=== PATIENT | male | born 1955 | race African-American/Black ===

== ENCOUNTER 2017-07-15 14:17 | Emergency (ER) | payer OTHER, MEDICARE ==
[~2017-07-15] VITALS: Ht 180.3 cm; Wt 113.4 kg
[2017-07-15 14:38] LABS: ABSOLUTE BASOPHIL COUNT 0 /CUMM (0.0-0.2); ABSOLUTE EOSINOPHIL COUNT 0.2 /CUMM (0.0-0.7); ABSOLUTE GRANULOCYTE CT 7.1 /CUMM (1.4-6.5); ABSOLUTE LYMPH COUNT 1.5 /CUMM (1.2-3.4); ABSOLUTE MONOCYTE COUNT 0.1 /CUMM (0.10-0.60); BASOPHIL % 0.3 % (0.0-2.0); EOSINOPHIL % 1.7 % (0-5); GRANULOCYTE % 79.8 % (42.2-75.2); HEMATOCRIT 33.3 % (42-52); MEAN CORPUSCULAR HGB 29.5 PG (27.0-31.0); MEAN CORPUSCULAR HGB CONC 32.3 G/DL (33.0-37.0); MEAN CORPUSCULAR VOLUME 91.2 FL (80.0-94.0); MEAN PLATELET VOLUME 7.7 FL (7.4-10.4); PLATELET COUNT 391 /CUMM (130-400); RBC DISTRIBUTION WIDTH 15.7 % (11.5-14.5); RED BLOOD CELL CT 3.65 /CUMM (4.70-6.10); WHITE BLOOD CELL COUNT 8.9 /CUMM (4.8-10.8)
--- NOTE | 2017-07-15 16:23 | CT SCAN REPORT ---
EXAMINATION: CT ABDOMEN AND PELVIS WITHOUT CONTRAST CLINICAL INFORMATION: Abdominal pain. COMPARISON: May 2014. TECHNIQUE: Contiguous axial thin section helical images of the abdomen and pelvis were performed without oral or IV contrast. The data set was reformatted in the coronal and sagittal planes and reviewed on an independent workstation. DLP: 1006 mGy-cm. FINDINGS: There is patchy groundglass opacification within the lateral basal segment of the left lower lobe. The visualized lung bases are otherwise clear. The visualized portions of the heart are unremarkable. The liver is of normal size and attenuation without focal lesions nor intrahepatic biliary ductal dilation. A normal gallbladder is identified. There is no wall thickening or discernible pericholecystic fluid. The spleen, pancreas, adrenal glands are unremarkable. There are atrophic bilateral [place] kidneys. There is a transplanted kidney within the left lower quadrants of normal size and attenuation without hydronephrosis or nephrolithiasis. There is mild perinephric stranding. There is no abdominal free fluid. There is neither mesenteric nor retroperitoneal lymphadenopathy. Normal unopacified loops of small and large bowel are identified. A normal appendix is identified. There is no pelvic free fluid. The urinary bladder is unremarkable. There is neither pelvic nor inguinal lymphadenopathy. There is a fat-containing right inguinal hernia. Bone windows: Neither sclerotic nor lytic bone lesions are identified. IMPRESSION: No evidence for acute abdominal or pelvic inflammatory or infectious processes. Transplanted kidney within the left lower quadrant without hydronephrosis or nephrolithiasis. Atrophic bilateral [place] kidneys.
[2017-07-15] MEDS ORDERED: LABETALOL HCL300 M1 PO (17:42)
[2017-07-15] MEDS ORDERED: PROGRAF1 M1 PO (17:43)
[2017-07-15] MEDS ORDERED: PRAVACHOL40 M1 PO (17:43)
[2017-07-15] MEDS ORDERED: OMEPRAZOLE40 M1 PO (17:43)
[2017-07-15] MEDS ORDERED: LABETALOL HCL100 M1 PO (17:43)
[2017-07-15] MEDS ORDERED: LASIX20 M1 PO (17:44)
[2017-07-15] MEDS ORDERED: PREDNISONE5 M1 PO (17:44)
[2017-07-15] MEDS ORDERED: JANUVIA50 M1 PO (17:44)
[2017-07-15] MEDS ORDERED: LANTUS SOL100 UNIT/1 SC (17:45)
[2017-07-15] MEDS ORDERED: HUMALOG100 UNIT/2 SC (17:45)
[2017-07-15] MEDS ORDERED: ASPIRIN EC81 M1 PO (17:45)
--- NOTE | 2017-07-15 17:45 | ED GENERAL ADULT ---
History of Present Illness General Chief Complaint: Abdominal Pain/Flank Pain Stated Complaint: BIBA, ABD PAIN, BURNING WITH URINATION Source: patient Exam Limitations: no limitations Vital Signs & Intake/Output Vital Signs & Intake/Output Vital Signs Date Time Temp Pulse Resp B/P B/P Pulse O2 O2 Flow FiO2 Mean Ox Delivery Rate 07/15 1926 97.7 76 18 165/102 07/15 1856 97.7 76 18 165/102 98 Room Air 07/15 1422 98.2 83 18 157/99 98 Room Air Allergies Coded Allergies: NO KNOWN ALLERGIES (06/12/14) Reconcile Medications Aspirin (Ecotrin*) 81 MG TABLET.DR 1 TAB PO DAILY HEART/BLOOD (Reported) Cyclosporine (Restasis) 0.05 % DROPERETTE 1 GTT OPH BID BOTH EYES (Reported) Difluprednate (Durezol) 0.05 % DROPS 1 GTT OS BID LEFT EYE (Reported) Furosemide (Lasix) 20 MG TABLET 60 MG PO DAILY DIURETIC (Reported) Insulin Glargine,Hum.rec.anlog (Lantus Solostar) 100 UNIT/ML (3 ML) INSULN.PEN 15 UNIT SC QPM DM (Reported) Insulin Lispro (Humalog) 100 UNIT/ML VIAL DM (Reported) Labetalol HCl 300 MG TABLET 1 TAB PO BID BP (Reported) Labetalol HCl 100 MG TABLET 1 TAB PO PRN VERY HIGH BP (Reported) Nitrofurantoin Monohyd/M-Cryst (Macrobid 100 MG Capsule) 100 MG CAPSULE 1 CAP PO BID UTI with food Omeprazole 40 MG CAPSULE.DR 1 CAP PO BID GI (Reported) Oxybutynin Chloride (Oxybutynin Chloride ER) (Unknown Strength) TAB.ER.24 ( Unknown Dose) PO DAILY BLADDER (Reported) Pravastatin Sodium (Pravachol) 40 MG TABLET 1 TAB PO DAILY CHOLESTEROL ( Reported) Prednisone 5 MG TABLET 1 TAB PO DAILY TRANSPLANT (Reported) Sitagliptin Phosphate (Januvia) 50 MG TABLET 1 TAB PO DAILY DM (Reported) Tacrolimus (Prograf) 1 MG CAPSULE 5 CAP PO BID TRANSPLANT (Reported) Triage Note: 62 YO MALE BIBA TO TRIAGE. PT C/O LBM 5 DAYS AGO, STATES +URINARY FREQUENCY/BURNING. C/O LOWER ABD PAIN. DENIES NV. Triage Nurses Notes Reviewed? yes Onset: Gradual Duration: day(s): (5) Timing: recent history Injury Environment: home Severity: moderate No Modifying Factors: none HPI: Patient is a 62-year-old male presenting to the emergency Department chief complaint of no bowel movement 5 days along with burning with urination 5 days. Patient reports that he has remote history of kidney transplant done in 2007 has been following up with his deputy register of deeds on regular basis without complications. Patient reports that his baseline creatinine is around 2 or 3. Patient recently TravelED to [facility] because of the passing of a family member. Patient was diagnosed with a urinary tract infection while he was out of the country, was prescribed antibiotics but only took 2 days worth and then traveled home. Did not take the medication with him. Patient reports dysuria. Urgency and frequency. Denies any nausea or vomiting or back pain. Denies any fevers or chills. Chest pain palpitations or shortness of breath. Patient does report no bowel movement in 5 days. Feels bloated. He called his kidney clinic and told him to take Colace. He has yet to take any Colace. (Anju Roth) Past History Travel History Traveled to [place] past 21 day No Medical History Any Pertinent Medical History? see below for history Neurological: NONE EENT: blindness Cardiovascular: hypertension, hyperlipidemia Respiratory: NONE Gastrointestinal: NONE Hepatic: NONE Renal: NONE Musculoskeletal: NONE Psychiatric: NONE Endocrine: diabetes Blood Disorders: NONE Cancer(s): NONE RESIDENT CAREGIVER/Reproductive: NONE History of CDIFF: No Surgical History Surgical History: non-contributory Psychosocial History What is your primary language Peruvian Tobacco Use: Never used Family History Hx Contributory? No (Anju Roth) Review of Systems Review of Systems Constitutional: Reports: no symptoms. Comments Review of systems: See HPI, All other systems negative. Constitutional, no chills fever or weight loss HEENT: No visual changes no sore throat no congestion Cardiovascular: No chest pain ,palpitation Skin, no jaundice no rashes Respiratory: No dyspnea cough sputum or hemoptysis GI: No nausea no vomiting : No hematuria Muscle skeletal: no back pain, no neck pain, Neurologic: No numbness no confusion, NO HEADACHE Psych: No stress anxiety or depression,. Heme/endocrine: No bruising no bleeding no polyuria or polydipsia Immunology: No splenectomy or history of AIDS (Anju Roth) Physical Exam Physical Exam General Appearance: well developed/nourished, no apparent distress, alert, awake , comfortable Comments: Well-developed well-nourished person in no acute distress, OBESE HEENT: Atraumatic, normocephalic Neck: Normal inspection Back: Nontender, no CVA tenderness. Cardiovascular: Regular rate and rhythms no murmurs rubs or gallops Respiratory: No respiratory distress.breath sounds clear to auscultation bilaterally Abdomen: Soft, nontender nondistended, no appreciable organomegaly. Slightly hypoactive bowel sounds. No ascites Extremity: No edema Neuro: Alert oriented x3 Skin: No appreciable rash on exposed skin, skin is warm and dry. Psych: Mood and affect is normal, memory and judgment is normal. Core Measures ACS in differential dx? No CVA/TIA Diagnosis: No Sepsis Present: No Sepsis Focused Exam Completed? No (Ru PATRICK,Anju) Progress Differential Diagnoses I considered the following diagnoses in my evaluation of the patient: SBO, UTI, CONSTIPATION, CYSTITIS, APPENDICITIS, urosepsis, acute kidney injury, dehydration Plan of Care: Orders Procedure Date/time Status Heart Healthy Diet 07/16 B Active CULTURE,URINE 07/15 1538 Active URINALYSIS 07/15 1538 Complete COMPREHENSIVE METABOLIC PANEL 07/15 1422 Complete CBC WITHOUT DIFFERENTIAL 07/15 1422 Complete Laboratory Tests 07/15/17 1722: Urinalysis LIGHT H, Urine Color YEL, Urine Clarity HAZY H, Urine pH 6.0, Ur Specific [place] 1.025, Urine Protein 100 H, Urine Ketones NEG, Urine Nitrite NEG, Urine Bilirubin NEG, Urine Urobilinogen 0.2, Ur Leukocyte Esterase SMALL H , Ur Microscopic SEDIMENT EXAMINED, Urine RBC 25-50 H, Urine WBC 15-25 H, Ur Epithelial Cells FEW, Urine Bacteria MOD H, Urine Mucus FEW, Urine Hemoglobin LARGE H, Urine Glucose NEG 07/15/17 1424: Anion Gap 17 H, Estimated GFR 19 L, BUN/Creatinine Ratio 20.6, Glucose 183 H, Calcium 9.1, Total Bilirubin 0.5, AST 27, ALT 28, Alkaline Phosphatase 119, Total Protein 7.8, Albumin 3.7, Globulin 4.1, Albumin/Globulin Ratio 0.9 L, CBC w Diff NO MAN DIFF REQ, RBC 3.65 L, MCV 91.2, MCH 29.5, RDW 15.7 H, MPV 7.7, Gran % 79.8 H, Lymphocytes % 17.4 L, Monocytes % 0.8 L, Eosinophils % 1.7, Basophils % 0.3, Absolute Granulocytes 7.1 H, Absolute Lymphocytes 1.5, Absolute Monocytes 0.1, Absolute Eosinophils 0.2, Absolute Basophils 0, PUBS MCHC 32.3 L Microbiology 07/15 1722 URINE ROUT: Urine Culture - RECD Diagnostic Imaging: Viewed by Me: CT Scan. Discussed w/RAD: CT Scan. Radiology Impression: PATIENT: KEI HYDE PRESENT AGE: 62 PATIENT ACCOUNT NO: [id number] : 56 LOCATION: [facility] ORDERING PHYSICIAN: Fabian PATRICK SERVICE DATE: 07/15/17 EXAM TYPE: CAT - CT ABD & PELVIS W/O IV CONTRAS EXAMINATION: CT ABDOMEN AND PELVIS WITHOUT CONTRAST CLINICAL INFORMATION: Abdominal pain. COMPARISON: May 2014. TECHNIQUE: Contiguous axial thin section helical images of the abdomen and pelvis were performed without oral or IV contrast. The data set was reformatted in the coronal and sagittal planes and reviewed on an independent workstation. DLP: 1006 mGy-cm. FINDINGS: There is patchy groundglass opacification within the lateral basal segment of the left lower lobe. The visualized lung bases are otherwise clear. The visualized portions of the heart are unremarkable. The liver is of normal size and attenuation without focal lesions nor intrahepatic biliary ductal dilation. A normal gallbladder is identified. There is no wall thickening or discernible pericholecystic fluid. The spleen, pancreas, adrenal glands are unremarkable. There are atrophic bilateral [place] kidneys. There is a transplanted kidney within the left lower quadrants of normal size and attenuation without hydronephrosis or nephrolithiasis. There is mild perinephric stranding. There is no abdominal free fluid. There is neither mesenteric nor retroperitoneal lymphadenopathy. Normal unopacified loops of small and large bowel are identified. A normal appendix is identified. There is no pelvic free fluid. The urinary bladder is unremarkable. There is neither pelvic nor inguinal lymphadenopathy. There is a fat-containing right inguinal hernia. Bone windows: Neither sclerotic nor lytic bone lesions are identified. IMPRESSION: No evidence for acute abdominal or pelvic inflammatory or infectious processes. Transplanted kidney within the left lower quadrant without hydronephrosis or nephrolithiasis. Atrophic bilateral [place] kidneys. DICTATED BY: Hamzah Izaguirre MD DATE/TIME DICTATED:07/15/171613 PROPERTY MAINTENANCE SUPERVISOR:JC DATE/TIME TRANSCRIBED:1613 CONFIDENTIAL, DO NOT COPY WITHOUT APPROPRIATE AUTHORIZATION. < Electronically signed in Other Vendor System> SIGNED BY: Hamzha Izaguirre MD 07/15/17 162 Initial ED EKG: none Comments: Patient is well-appearing, vitals are stable. Patient does have chronic renal failure. Reports that his creatinine is normally baseline around 3. Today's 3.4. Patient does have a UTI. Treated with IV Rocephin according to previous culture. Patient started on Macrobid according to previous culture as well. He 'll follow up with his deputy register of deeds, educated on calling him tomorrow. Patient will return for any worsening symptoms or concerns. Vitals are stable. Patient was given by mouth labetalol in the emergency department for blood pressure. Has not taken his dose yet today. /Hypertension as well as IV fluids were infusing. (Ru PATRICK,Anju) Departure Departure Time of Disposition: 1836 Disposition: HOME OR SELF CARE Condition: Stable Clinical Impression Primary Impression: Chronic renal failure Qualifiers: Chronic kidney disease stage: unspecified stage Qualified Code: N18.9 - Chronic kidney disease, unspecified Secondary Impressions: Constipation Qualifiers: Constipation type: unspecified constipation type Qualified Code: K59.00 - Constipation, unspecified Urinary tract infection Qualifiers: Urinary tract infection type: site unspecified Hematuria presence: without hematuria Qualified Code: N39.0 - Urinary tract infection, site not specified Referrals: Mathew John APRN (PCP/Family) Additional Instructions: follow-up with your deputy register of deeds, call tomorrow to make an appointment for the next 2-4 days. Increase fluid intake. You were given a copy of the CAT scan and lab work results. Take antibiotics as prescribed. Return for worsening symptoms or concerns. Also follow-up with your primary care physician regarding all your labs and imaging results as there may be incidental findings for which urine seen here today. PATIENT: KEI HYDE PRESENT AGE: 62 PATIENT ACCOUNT NO: [id number] : 56 LOCATION: [facility] ORDERING PHYSICIAN: Fabian PATRICK SERVICE DATE: 07/15/17 EXAM TYPE: CAT - CT ABD & PELVIS W/O IV CONTRAS EXAMINATION: CT ABDOMEN AND PELVIS WITHOUT CONTRAST CLINICAL INFORMATION: Abdominal pain. COMPARISON: May 2014. TECHNIQUE: Contiguous axial thin section helical images of the abdomen and pelvis were performed without oral or IV contrast. The data set was reformatted in the coronal and sagittal planes and reviewed on an independent workstation. DLP: 1006 mGy-cm. FINDINGS: There is patchy groundglass opacification within the lateral basal segment of the left lower lobe. The visualized lung bases are otherwise clear. The visualized portions of the heart are unremarkable. The liver is of normal size and attenuation without focal lesions nor intrahepatic biliary ductal dilation. A normal gallbladder is identified. There is no wall thickening or discernible pericholecystic fluid. The spleen, pancreas, adrenal glands are unremarkable. There are atrophic bilateral [place] kidneys. There is a transplanted kidney within the left lower quadrants of normal size and attenuation without hydronephrosis or nephrolithiasis. There is mild perinephric stranding. There is no abdominal free fluid. There is neither mesenteric nor retroperitoneal lymphadenopathy. Normal unopacified loops of small and large bowel are identified. A normal appendix is identified. There is no pelvic free fluid. The urinary bladder is unremarkable. There is neither pelvic nor inguinal lymphadenopathy. There is a fat-containing right inguinal hernia. Bone windows: Neither sclerotic nor lytic bone lesions are identified. IMPRESSION: No evidence for acute abdominal or pelvic inflammatory or infectious processes. Transplanted kidney within the left lower quadrant without hydronephrosis or nephrolithiasis. Atrophic bilateral [place] kidneys. DICTATED BY: Hamzah Izaguirre MD DATE/TIME DICTATED:07/15/171613 PROPERTY MAINTENANCE SUPERVISOR:CJ DATE/TIME TRANSCRIBED:07/15/171613 CONFIDENTIAL, DO NOT COPY WITHOUT APPROPRIATE AUTHORIZATION. <Electronically signed in Other Vendor System> SIGNED BY: Hamzah Izaguirre MD 07/15/17 264 Departure Forms: Customer Survey General Discharge Information Prescriptions: Current Visit Scripts Nitrofurantoin Monohyd/M-Cryst (Macrobid 100 MG Capsule) 1 CAP PO BID #14 CAP with food (Anju Roth) PA/FINISH INSPECTOR Co-Sign Statement Statement: ED Attending supervision documentation- [] I saw and evaluated the patient. I have also reviewed all the pertinent lab results and diagnostic results. I agree with the findings and the plan of care as documented in the PA's/FINISH INSPECTOR's documentation. [X] I have reviewed the ED Record and agree with the PA's/FINISH INSPECTOR's documentation. [] Additions or exceptions (if any) to the PAs/FINISH INSPECTOR's note and plan are summarized below: [] (Yaz RINALDI,Ruma) Critical Care Note Critical Care Note Critical Care Time: non-applicable (Ru PATRICK,Anju)
[2017-07-15] MEDS ORDERED: OXYBUTYNIN CHLO10 M1 PO (17:46)
[2017-07-15] MEDS ORDERED: DUREZOL5 ML OS (17:47)
[2017-07-15] MEDS ORDERED: RESTASIS1 EACH OPH (17:47)
[2017-07-15] MEDS ORDERED: MACROBID 100 M100 MG PO (18:39)
[2017-07-15 19:27] VITALS: BP 165/102
== END 2017-07-15 20:03 ==
LOC: ERH 14:17
PROVIDERS: Emergency Medicine
DX: N18.9 Chronic kidney disease, unspecified (principal); K59.00 Constipation, unspecified; N39.0 Urinary tract infection, site not specified; I10 Essential (primary) hypertension; E11.9 Type 2 diabetes mellitus without complications; Z79.4 Long term (current) use of insulin
CPT/HCPCS: 74176; 81001; 87086; 96361; 96374; J0696

== ENCOUNTER 2018-02-09 00:28 | Emergency (ER) | payer OTHER, MEDICARE ==
[~2018-02-09] VITALS: Ht 180.3 cm; Wt 113.4 kg
[~2018-02-09 00:28] MED LIST: ASPIRIN EC81 M1 PO; DUREZOL5 ML OS; HUMALOG100 UNIT/2 SC; JANUVIA50 M1 PO; LABETALOL HCL100 M1 PO; LABETALOL HCL300 M1 PO; LANTUS SOL100 UNIT/1 SC; LASIX20 M1 PO; MACROBID 100 M100 MG PO; OMEPRAZOLE40 M1 PO; OXYBUTYNIN CHLO10 M1 PO; PRAVACHOL40 M1 PO; PREDNISONE5 M1 PO; PROGRAF1 M1 PO; RESTASIS1 EACH OPH
--- NOTE | 2018-02-09 00:35 | ED GI/GU/ABDOMINAL COMPLAINT ---
History of Present Illness General Chief Complaint: Abdominal Pain/Flank Pain Stated Complaint: BIBA ABD PAIN Source: patient Exam Limitations: no limitations Vital Signs & Intake/Output Vital Signs & Intake/Output Vital Signs Date Time Temp Pulse Resp B/P B/P Pulse O2 O2 Flow FiO2 Mean Ox Delivery Rate 02/09 0359 97.9 90 18 152/84 99 Room Air 02/09 0336 97.6 91 18 173/85 100 Room Air 02/09 0035 98.4 111 18 132/90 100 Room Air Allergies Coded Allergies: NO KNOWN ALLERGIES (06/12/14) Reconcile Medications Aspirin (Ecotrin*) 81 MG TABLET.DR 1 TAB PO DAILY HEART/BLOOD (Reported) Cyclosporine (Restasis) 0.05 % DROPERETTE 1 GTT OPH BID BOTH EYES (Reported) Difluprednate (Durezol) 0.05 % DROPS 1 GTT OS BID LEFT EYE (Reported) Furosemide (Lasix) 20 MG TABLET 60 MG PO DAILY DIURETIC (Reported) Insulin Glargine,Hum.rec.anlog (Lantus Solostar) 100 UNIT/ML (3 ML) INSULN.PEN 15 UNIT SC QPM DM (Reported) Insulin Lispro (Humalog) 100 UNIT/ML VIAL DM (Reported) Labetalol HCl 300 MG TABLET 1 TAB PO BID BP (Reported) Labetalol HCl 100 MG TABLET 1 TAB PO PRN VERY HIGH BP (Reported) Nitrofurantoin Monohyd/M-Cryst (Macrobid 100 MG Capsule) 100 MG CAPSULE 1 CAP PO BID UTI with food Omeprazole 40 MG CAPSULE.DR 1 CAP PO BID GI (Reported) Oxybutynin Chloride (Oxybutynin Chloride ER) (Unknown Strength) TAB.ER.24 ( Unknown Dose) PO DAILY BLADDER (Reported) Pravastatin Sodium (Pravachol) 40 MG TABLET 1 TAB PO DAILY CHOLESTEROL ( Reported) Prednisone 5 MG TABLET 1 TAB PO DAILY TRANSPLANT (Reported) Sitagliptin Phosphate (Januvia) 50 MG TABLET 1 TAB PO DAILY DM (Reported) Tacrolimus (Prograf) 1 MG CAPSULE 5 CAP PO BID TRANSPLANT (Reported) Triage Nurses Notes Reviewed? yes Onset: Gradual Duration: day(s): Timing: recent history Location: generalized abdomen, right lower quadrant Radiation: no radiation Activities at Onset: none Prior Abdominal Problems: none Modifying Factors: Improves With: rest. Worsens With: palpation. Associated Symptoms: abdominal pain, diarrhea, nausea/vomiting HPI: 62 yo gentleman h/o renal transplant, presents with right lower quadrant pain, nausea, vomiting, diarrhea for the past 2 weeks. "Everything I eat just goes right through me." He notes occasional vomiting and nausea. No recent antibiotics. No dysuria, dyspnea, fever, chills. He is otherwise well. Past History Travel History Traveled to [place] past 21 day No Medical History Any Pertinent Medical History? see below for history Neurological: NONE EENT: blindness Cardiovascular: hypertension, hyperlipidemia Respiratory: NONE Gastrointestinal: NONE Hepatic: NONE Renal: NONE Musculoskeletal: NONE Psychiatric: NONE Endocrine: diabetes Blood Disorders: NONE Cancer(s): NONE [employer]ANT [employer] ENGINEER/Reproductive: NONE History of CDIFF: No Surgical History Surgical History: non-contributory Psychosocial History What is your primary language Portuguese Family History Hx Contributory? No Review of Systems Review of Systems Constitutional: Reports: no symptoms. EENTM: Reports: no symptoms. Respiratory: Reports: no symptoms. Cardiovascular: Reports: no symptoms. GI: Reports: no symptoms. Genitourinary: Reports: no symptoms. Musculoskeletal: Reports: no symptoms. Skin: Reports: no symptoms. Neurological/Psychological: Reports: no symptoms. Hematologic/Endocrine: Reports: no symptoms. Immunologic/Allergic: Reports: no symptoms. All Other Systems: Reviewed and Negative Physical Exam Physical Exam General Appearance: well developed/nourished, mild distress Head: atraumatic, normal appearance Eyes: Bilateral: normal appearance. Ears, Nose, Throat, Mouth: hearing grossly normal, moist mucous membrane Neck: normal inspection, supple, full range of motion, normal alignment Respiratory: normal breath sounds, chest non-tender, no respiratory distress, quiet respiration, lungs clear Cardiovascular: regular rate/rhythm Gastrointestinal: normal bowel sounds, soft, no organomegaly, mild distension, mild rlq tenderness, mild mid epigastric tenderness to palpation. Back: normal inspection, normal range of motion Extremities: normal range of motion, pelvis stable, injury present Neurologic/Psych: no motor/sensory deficits, awake, alert, oriented x 3 Skin: intact, normal color Core Measures ACS in differential dx? No Sepsis Present: No Sepsis Focused Exam Completed? No Progress Differential Diagnosis: viral syndrome vs diverticulitis vs other. Plan of Care: Orders Procedure Date/time Status URINALYSIS 02/09 0326 Active [place], Insertion/Removal/Asses 08/14 0322 Active CULTURE,URINE 02/09 322 Active LIPASE 02/10 144 Complete HEPATIC FUNCTION PANEL 02/10 144 Complete CBC WITHOUT DIFFERENTIAL 02/10 144 Complete BASIC METABOLIC PANEL 02/10 144 Complete AMYLASE 02/10 144 Complete Laboratory Tests 02/09/18 0130: Anion Gap 16, Estimated GFR 3 L, BUN/Creatinine Ratio 6.8 L, Glucose 118 H, Calcium 8.8, Total Bilirubin 0.5, Direct Bilirubin 0.5 H, AST 19, ALT 17 L, Alkaline Phosphatase 65, Total Protein 7.2, Albumin 4.0, Amylase 93, Lipase 250, CBC w Diff NO MAN DIFF REQ, RBC 3.80 L, MCV 88.3, MCH 29.7, MCHC 33.6, RDW 17.2 H, MPV 8.3, Gran % 70.7, Lymphocytes % 19.8 L, Monocytes % 8.1, Eosinophils % 0.4, Basophils % 1.0, Absolute Granulocytes 5.0, Absolute Lymphocytes 1.4, Absolute Monocytes 0.6, Absolute Eosinophils 0, Absolute Basophils 0.1 Microbiology 02/09 322 URINE ROUT: Urine Culture - ORD Diagnostic Imaging: Viewed by Me: CT Scan. Discussed w/RAD: CT Scan. Radiology Impression: PATIENT: KEI HYDE PRESENT AGE: 62 PATIENT ACCOUNT NO: [id number] : 56 LOCATION: [facility] ORDERING PHYSICIAN: Juan Alberto Luis MD SERVICE DATE: 02/09/18 EXAM TYPE: CAT - CT ABD & PELVIS W/O IV CONTRAS EXAMINATION: CT ABDOMEN AND PELVIS WITHOUT CONTRAST CLINICAL INFORMATION: History of kidney transplant. Right lower quadrant tenderness. Nausea, vomiting, diarrhea. COMPARISON: 2017 TECHNIQUE: Multidetector volumetric imaging was performed from the superior aspect of the liver through the pubic symphysis. Sagittal and coronal reformatted images were obtained on the technologist's workstation. DLP: 650 mGy -cm FINDINGS: LUNG BASES: The visualized lung bases are unremarkable. LIVER, GALLBLADDER, AND BILIARY TREE: The liver is normal in size, shape, and attenuation. Calcification noted at the dome of the liver. No focal hepatic lesion or biliary ductal dilatation is present. The gallbladder is likely absent. No common bile ductal dilatation. PANCREAS: Unremarkable. SPLEEN: Unremarkable. ADRENAL GLANDS: Unremarkable. KIDNEYS AND URETERS: The [place] kidneys are somewhat atrophic but otherwise unremarkable. No hydronephrosis. Left lower quadrant transplant kidney is unremarkable. No hydronephrosis or adjacent fluid collection. BLADDER: Partially distended with circumferential wall thickening. GASTROINTESTINAL TRACT: The stomach is unremarkable. The small bowel is normal in caliber. There is no obstruction. Normal appendix. No colonic wall thickening or inflammatory change. Liquid stool throughout much of the colon. No free air or free fluid. ABDOMINAL WALL: Small fat-containing right inguinal hernia. Rectus muscular diastases. LYMPH NODES: Normal. VASCULAR: Normal caliber aorta. Mild atherosclerotic calcifications. PELVIC VISCERA: The prostate and seminal vesicles are unremarkable. OSSEOUS STRUCTURES: No acute or suspicious osseous abnormality. Mild degenerative change throughout the spine. IMPRESSION: No acute inflammatory changes of the abdomen and pelvis. Liquid stool throughout the colon. Left lower quadrant transplant kidney appears unremarkable. DICTATED BY: Monica RINALDI,Yohannes DATE/TIME DICTATED:02/09/1854 PEER TUTOR:CJ DATE/TIME TRANSCRIBED:02/09/1854 CONFIDENTIAL, DO NOT COPY WITHOUT APPROPRIATE AUTHORIZATION. <Electronically signed in Other Vendor System> SIGNED BY: Monica RINALDI,Yohannes 02/09/18 0103 Initial ED EKG: none Departure Departure Disposition: HOME OR SELF CARE Condition: Stable Clinical Impression Primary Impression: Diarrhea Secondary Impressions: Abdominal pain, History of renal transplant, Renal failure (ARF), acute on chronic Referrals: Mathew John APRN (PCP/Family) Departure Forms: Customer Survey General Discharge Information Comments 02/09/18, 3:31am... discussed with dr. Gomez ([place] hospitalist) who accepts this complicated patient with a renal transplant and now new onset significant renal failure Critical Care Note Critical Care Note Critical Care Time: 30-74 min
--- NOTE | 2018-02-09 01:03 | CT SCAN REPORT ---
EXAMINATION: CT ABDOMEN AND PELVIS WITHOUT CONTRAST CLINICAL INFORMATION: History of kidney transplant. Right lower quadrant tenderness. Nausea, vomiting, diarrhea. COMPARISON: 07/15/2017 TECHNIQUE: Multidetector volumetric imaging was performed from the superior aspect of the liver through the pubic symphysis. Sagittal and coronal reformatted images were obtained on the technologist's workstation. DLP: 650 mGy-cm FINDINGS: LUNG BASES: The visualized lung bases are unremarkable. LIVER, GALLBLADDER, AND BILIARY TREE: The liver is normal in size, shape, and attenuation. Calcification noted at the dome of the liver. No focal hepatic lesion or biliary ductal dilatation is present. The gallbladder is likely absent. No common bile ductal dilatation. PANCREAS: Unremarkable. SPLEEN: Unremarkable. ADRENAL GLANDS: Unremarkable. KIDNEYS AND URETERS: [place] kidneys are somewhat atrophic but otherwise unremarkable. No hydronephrosis. Left lower quadrant transplant kidney is unremarkable. No hydronephrosis or adjacent fluid collection. BLADDER: Partially distended with circumferential wall thickening. GASTROINTESTINAL TRACT: The stomach is unremarkable. The small bowel is normal in caliber. There is no obstruction. Normal appendix. No colonic wall thickening or inflammatory change. Liquid stool throughout much of the colon. No free air or free fluid. ABDOMINAL WALL: Small fat-containing right inguinal hernia. Rectus muscular diastases. LYMPH NODES: Normal. VASCULAR: Normal caliber aorta. Mild atherosclerotic calcifications. PELVIC VISCERA: The prostate and seminal vesicles are unremarkable. OSSEOUS STRUCTURES: No acute or suspicious osseous abnormality. Mild degenerative change throughout the spine. IMPRESSION: No acute inflammatory changes of the abdomen and pelvis. Liquid stool throughout the colon. Left lower quadrant transplant kidney appears unremarkable.
[2018-02-09 01:59] LABS: ABSOLUTE BASOPHIL COUNT 0.1 /CUMM (0.0-0.2); ABSOLUTE EOSINOPHIL COUNT 0 /CUMM (0.0-0.7); ABSOLUTE LYMPH COUNT 1.4 /CUMM (1.2-3.4); ABSOLUTE MONOCYTE COUNT 0.6 /CUMM (0.10-0.60); EOSINOPHIL % 0.4 % (0-5); GRANULOCYTE % 70.7 % (42.2-75.2); HEMATOCRIT 33.5 % (42-52); MEAN CORPUSCULAR HGB 29.7 PG (27.0-31.0); MEAN CORPUSCULAR HGB CONC 33.6 G/DL (33.0-37.0); MEAN CORPUSCULAR VOLUME 88.3 FL (80.0-94.0); RBC DISTRIBUTION WIDTH 17.2 % (11.5-14.5); WHITE BLOOD CELL COUNT 7.1 /CUMM (4.8-10.8)
[2018-02-09 02:24] LABS: MEAN PLATELET VOLUME 8.3 FL (7.4-10.4); PLATELET COUNT 164 /CUMM (130-400)
[2018-02-09 03:59] VITALS: BP 152/84
== END 2018-02-09 03:27 | disposition short-term general hospital (02) ==
LOC: ERH 00:28
PROVIDERS: Pediatrics
DX: R19.7 Diarrhea, unspecified (principal); N17.9 Acute kidney failure, unspecified; R10.31 Right lower quadrant pain
CPT/HCPCS: 74176; 87086; 96374; 96375; 99291; J0131; J2405